=== PATIENT | male | born 1975 | race Caucasian/White ===

== ENCOUNTER → 2017-11-01 | Outpatient (CLI) | payer BC ==
--- NOTE | 2017-11-01 09:15 | Diagnostic Imaging Report ---
PROCEDURE: MRI lumbar spine. TECHNIQUE: Multiplanar, multisequence MRI of the lumbar spine was performed without contrast. INDICATION: Lumbar radiculopathy. COMPARISON: None. FINDINGS: Normal alignment. Vertebral body heights are preserved. Normal bone marrow signal. No abnormal signal in the conus which terminates at L2. Normal morphology of the cauda equina. The visualized abdominal and pelvic contents are unremarkable. L1-L2: Intervertebral disc is preserved. No neural impingement. L2-L3: Intervertebral disc is preserved. No neural impingement. L3-L4: Small central radial tear and disc bulge results in no neural impingement. Disc space height loss results in mild bilateral neural foraminal narrowing. L4-L5: There is a large right paracentral disc extrusion with inferior migration that completely effaces the right lateral recess and results in moderate spinal canal narrowing. Underlying broad-based disc bulge also results in moderate left lateral recess narrowing. Disc space height loss and facet arthropathy result in advanced bilateral neural foraminal narrowing. L5-S1: Broad-based disc bulge results in mild left lateral recess narrowing. No substantial spinal canal narrowing. Disc space height loss and facet arthropathy result in advanced left and moderate right neural foraminal narrowing. IMPRESSION: 1. 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 2. Moderate and advanced neural foraminal narrowing detailed above. Dictated by: Dictated on workstation # [id number]
== END ==
LOC: RAD 08:24
PROVIDERS: ATTEND Physician Assistant
DX: M48.07 Spinal stenosis, lumbosacral region (principal); M51.16 Intervertebral disc disorders with radiculopathy, lumbar region; M51.27 Other intervertebral disc displacement, lumbosacral region; M46.97 Unspecified inflammatory spondylopathy, lumbosacral region
CPT/HCPCS: 72148